=== PATIENT | female | born 1965 | race Caucasian/White ===

== ENCOUNTER 2017-08-08 11:27 | Inpatient (IN) | payer OTHER ==
[~2017-08-08] VITALS: Ht 162.6 cm; Wt 72.4 kg
[2017-08-08] VITALS (20 sets, daily range): BP systolic 116–162; BP diastolic 78–95; PULSE 68–104; RESP 11–20; Ht 162.6 cm; Wt 72.4 kg
[2017-08-08] MEDS ORDERED: LOSA25TA5 PO (11:49)
[2017-08-08] MEDS ORDERED: SIMV20TA PO (11:50)
--- NOTE | 2017-08-08 13:20 | HPN ---
Date/Time of Note Date/Time of Note DATE: 08/08/17 TIME: 13:20 Interval H&P Admission Note Pt. seen H&P reviewed: No system changes BRIEN LI MD Aug 08, 2017 13:20
[2017-08-08] MEDS ORDERED: PROPOFOL 20 ML ONE ×2 (13:58→13:59)
[2017-08-08] MEDS ORDERED: ROCURONIUM 50 MG INJ ONE (13:58)
[2017-08-08] MEDS ORDERED: METOCLOPRAMIDE 10 MG INJ ONE (13:58)
[2017-08-08] MEDS ORDERED: DEXAMETHASONE 4 MG/ML 1 ML INJ ONE (13:58)
[2017-08-08] MEDS ORDERED: CEFAZOLIN 1 GM INJ ONE (13:59)
[2017-08-08] MEDS ORDERED: MIDAZOLAM 1 MG/ML 2 ML INJ ONE (13:59)
[2017-08-08] MEDS ORDERED: LIDOCAINE 1% (MPF) 30 ML INJ INJ ONE (14:15)
[2017-08-08] MEDS ORDERED: LIDOCAINE 1% (MPF) 30 ML INJ ONE (14:35)
[2017-08-08] MEDS ORDERED: HYDROmorphONE 2 MG/ML SYG ONE (14:35)
[2017-08-08] MEDS ORDERED: HYDROmorphONE (0.2 MG/ML) 10ML SYG IV PRN ×3 (15:00)
[2017-08-08] MEDS ORDERED: ONDANSETRON 4 MG INJ IV PRN (15:00)
[2017-08-08] MEDS ORDERED: MEPERIDINE 25 MG INJ IV PRN (15:00)
[2017-08-08] MEDS ORDERED: DIPHENHYDRAMINE 50 MG INJ IV PRN ×2 (15:00→18:00)
[2017-08-08] MEDS ORDERED: METOCLOPRAMIDE 10 MG INJ IV PRN (15:00)
[2017-08-08] MEDS ORDERED: hydrALAzine 20 MG INJ IV PRN (15:00)
[2017-08-08] MEDS ORDERED: LABETALOL HCL 20MG INJ IV PRN (15:00)
[2017-08-08] MEDS ORDERED: OXYCODONE/ACETAMINOPHEN (5/325) TAB PO PRN ×2 (15:00)
[2017-08-08] MEDS ORDERED: SUCCINYLCHOLINE CHLORIDE 100 MG/5 ML SYG IV ONE (16:48)
--- NOTE | 2017-08-08 17:13 | HPN ---
Date/Time of Note Date/Time of Note DATE: 08/08/17 TIME: 17:13 Interval H&P Admission Note Pt. seen H&P reviewed: No system changes BRIEN LI MD Aug 08, 2017 17:13
--- NOTE | 2017-08-08 17:16 | SIPON ---
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
--- NOTE | 2017-08-08 17:27 | OPR ---
Date/Time of Note Date/Time of Note DATE: 08/08/17 TIME: 17:19 Operative Report Preoperative Diagnosis Thyroid cancer Postoperative Diagnosis same Operation/Procedure Performed Total thyroidectomy with central neck dissection Surgeon Mak Li M.D. 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 Risks, benefits, alternatives to surgery discussed. Risks included but were not limited to bleeding, infection, scar, injury to the laryngeal nerve, change in voice, recurrent cancer, pain, and need for adjuvant therapy. She understood these and signed consent. Procedure Description After informed consent was obtained the patient was brought back to the operating room. The neck was extended with a shoulder roll. The neck was prepped and draped in usual sterile fashion. 15 blade was used to make a 4 cm incision in relaxed skin tension line just below the cricoid cartilage. The incision was carried down to the strap muscles. The strap muscles were divided in the midline. The left strap muscles were retracted laterally. The superior pole was retracted inferiorly and the superior pole vessels were dissected out and ligated with a harmonic scalpel. The middle pole vessels were dissected out and ligated with the harmonic scalpel. I then turned my attention to the inferior pole. The inferior pole vessels were dissected out and ligated with a harmonic scalpel. The inferior parathyroid gland was identified and preserved with its blood supply. I then rotated the gland medially and identify the recurrent laryngeal nerve in the tracheal esophageal groove. I followed the nerve up towards the larynx and detach the remaining thyroid attachments the larynx at Valadez's ligament. A firm nodule at the isthmus was encountered. This was the FNA biopsy lesion showing cancer. This was easily dissected off the trachea. There is no obvious muscle invasion noted. I then turned my attention to the right side. The right strap muscles were retracted laterally. The superior pole was retracted inferiorly and the superior pole vessels were dissected out and ligated with a harmonic scalpel. The middle pole vessels were dissected out and ligated with the harmonic scalpel. I then turned my attention to the inferior pole. The inferior pole vessels were dissected out and ligated with a harmonic scalpel. The inferior parathyroid gland was identified and preserved with its blood supply. I then rotated the gland medially and identify the recurrent laryngeal nerve in the tracheal esophageal groove. I followed the nerve up towards the larynx and detach the remaining thyroid attachments the larynx at Valadez's ligament. I then examined both paratracheal beds. Both recurrent laryngeal nerves were stimulated attested to function properly. The nerves were followed down to the chest and fibro-adipose and lymphoid tissue was removed. There was no obvious lymphadenopathy. The area was irrigated profusely with saline. Surgicel was placed in the wound bed. 3-0 chromic was used to close the strap muscles and platysma. 5-0 Monocryl in a subcuticular fashion was used to close the skin. Mastisol, Telfa , Tegaderm were placed on the skin the patient was extubated by anesthesia and brought to the recovery room in stable condition. MAK LI MD Aug 08, 2017 17:27
[2017-08-08] MEDS ORDERED: NACL 0.9% 3 ML SYG IV SCH (18:00)
[2017-08-08] MEDS: HYDROCODONE/APAP (5/325) TAB PO PRN (20:32)
[2017-08-08] MEDS: morphine 2 MG INJ IV PRN (20:32)
[2017-08-08] MEDS: FAMOTIDINE 20 MG INJ IV SCH (20:32)
[2017-08-08] MEDS: ONDANSETRON 4 MG INJ IV PRN (20:32)
[2017-08-08] MEDS: CALCIUM CARBONATE 500 MG CHEW TAB PO SCH (20:33)
[2017-08-08] MEDS ORDERED: VITAMIN A & D 5 GM OINT PACKET TOP ONE (21:22)
[2017-08-08] MEDS: CEFAZOLIN 1 GM/50 ML (PMX) 50 ML IVPB SCH (23:12)
[2017-08-09 02:00] VITALS: BP 108/65; RESP 18
[2017-08-09] MEDS: ONDANSETRON 4 MG INJ IV PRN (02:47)
[2017-08-09] MEDS: morphine 2 MG INJ IV PRN ×2 (02:47→06:24)
[2017-08-09] MEDS: HYDROCODONE/APAP (5/325) TAB PO PRN ×2 (02:48→09:25)
[2017-08-09] MEDS: CEFAZOLIN 1 GM/50 ML (PMX) 50 ML IVPB SCH (06:12)
[2017-08-09 07:57] VITALS: BP 114/65; RESP 20
[2017-08-09] MEDS: CALCIUM CARBONATE 500 MG CHEW TAB PO SCH (08:19)
[2017-08-09] MEDS: FAMOTIDINE 20 MG INJ IV SCH (09:24)
[2017-08-12 17:06] LABS: PTH CALCIUM 9.3 mg/dL (8.6-10.4)
== END 2017-08-09 11:28 | disposition home or self-care (01) | DRG 627 ==
LOC: REC 11:27 → EDSTATUS 14:00 → MS2 19:30
PROVIDERS: ADMIT Otolaryngology; ATTEND Otolaryngology
PROC: 07T20ZZ Resection of Left Neck Lymphatic, Open Approach (ICD-10-PCS; 2017-08-08)
PROC: 07T10ZZ Resection of Right Neck Lymphatic, Open Approach (ICD-10-PCS; 2017-08-08)
PROC: 0GTK0ZZ Resection of Thyroid Gland, Open Approach (ICD-10-PCS; principal; 2017-08-08 12:00)
DX: C73 Malignant neoplasm of thyroid gland (principal); I10 Essential (primary) hypertension; E78.5 Hyperlipidemia, unspecified
CPT/HCPCS: 82310; 83970; 88307; J0360; J0690; J1100; J1170; J2250; J2270; J2405; J2765